=== PATIENT | female | born 1955 | race Caucasian/White ===

== ENCOUNTER 2017-06-16 12:16 | Emergency (ER) | payer SELFPAY ==
[~2017-06-16] VITALS: Ht 154.9 cm; Wt 62.0 kg
[~2017-06-16 12:16] MED LIST: ALBU17I INH; EFFE150C PO; IBUP-238 PO; LEVO88TA2 PO; MIRTA15 PO; NEXI20CA PO; QUET1TAB66 PO; SYNT88TA PO; VIST50CA PO
[2017-06-16 12:17] VITALS: BP 125/68; PULSE 98; RESP 17; TEMP 97.9; O2SAT 96
--- NOTE | 2017-06-16 12:22 | PD ---
Physical Exam Time Seen by Provider: 12:21 Narrative 61-year-old female presents to the emergency Department with complaint of right foot and ankle pain after getting dizzy last night and falling to the floor. Denies anticoagulants. Denies hitting her head or loss of consciousness. Denies neck pain or back pain that is unchanged. Denies chest pain, shortness of breath. He is ambulatory and triaged. Patient seen in triage. Vital signs reviewed. Patient awaiting medical bed. Data Data Last Documented VS Vital Signs Date Time Temp Pulse Resp B/P (MAP) Pulse Ox O2 Delivery O2 Flow Rate FiO2 06/16/17 12:17 97.9 98 17 125/68 (87) 96 Room Air [facility] Supervised Visit with NOHELIA: Laura Coreas Jun 16, 2017 12:22
[2017-06-16] MEDS ORDERED: SODIUM CHLORIDE 0.9% FLUSH 10 ML FLUSH IVF PRN (12:30)
--- NOTE | 2017-06-16 13:14 | RADRPT ---
EXAM DATE/TIME: 06/16/2017 13:00 [facility] COMPARISON: No previous studies available for comparison. INDICATIONS : Pain post fall. MEDICAL HISTORY : None. SURGICAL HISTORY : None. ENCOUNTER: Initial ACUITY: 1 day PAIN SCORE: 8/10 LOCATION: Right Ankle. FINDINGS: Three view exam was performed of the right ankle. The bony structures are in normal alignment. No e vidence of fracture, dislocation, or soft tissue swelling. The ankle mortise is intact. No radiopaq ue foreign bodies are seen. Bony mineralization is normal. CONCLUSION: Unremarkable examination of the right ankle. Devyn Chawla Jr., MD on June 16, 2017 at 13:12 Board Certified Radiologist. This report was verified electronically.
[2017-06-16 13:15] VITALS: BP 156/82; PULSE 81; RESP 18; TEMP 98; O2SAT 98
--- NOTE | 2017-06-16 13:15 | RADRPT ---
EXAM DATE/TIME: 06/16/2017 13:01 [facility] COMPARISON: No previous studies available for comparison. INDICATIONS : Pain post fall. MEDICAL HISTORY : None. SURGICAL HISTORY : None. ENCOUNTER: Initial ACUITY: 1 day PAIN SCORE: 8/10 LOCATION: Right Foot FINDINGS: Three view examination of the right foot demonstrates no soft tissue swelling, dislocation, or fractu re. The tarsal bones appear intact. The interphalangeal and metatarsophalangeal joints are intact. The calcaneus is intact. Bony mineralization is normal. CONCLUSION: No acute disease. Devyn Chawla Jr., MD on June 16, 2017 at 13:13 Board Certified Radiologist. This report was verified electronically.
[2017-06-16 13:20] LABS: AUTOMATED NEUTROPHIL # 4.8 TH/MM3 (1.8-7.7); BASOPHIL % 0.2 % (0.0-2.0); HEMATOCRIT 41.1 % (35.0-46.0); HEMO FLAGS DIFF FINAL; LYMPH % 31.9 % (9.0-44.0); LYMPHOCYTE # 2.5 TH/MM3 (1.0-4.8); MEAN CELL VOLUME 93.2 FL (80.0-100.0); MEAN CORPUSCULAR HEMOGLOBIN 30.9 PG (27.0-34.0); MEAN CORPUSCULAR HGB CONC 33.2 % (32.0-36.0); MONO % 8.1 % (0.0-8.0); NEUT % 59.8 % (16.0-70.0); PLATELET COUNT 300 TH/MM3 (150-450); RED BLOOD COUNT 4.41 MIL/MM3 (4.00-5.30); RED CELL DISTRIBUTION WIDTH 14.2 % (11.6-17.2)
[2017-06-16 13:22] VITALS: BP 156/82; PULSE 81; RESP 18; TEMP 98; O2SAT 98
[2017-06-16] MEDS ORDERED: LEVO75TA3 PO (13:27)
[2017-06-16] MEDS ORDERED: EFFE150C PO (13:27)
[2017-06-16] MEDS ORDERED: ALBU6.7H INH (13:27)
[2017-06-16] MEDS ORDERED: MIRTA15 PO (13:27)
[2017-06-16] MEDS ORDERED: VIST50CA PO (13:27)
[2017-06-16] MEDS ORDERED: RANI1TAB5 PO (13:27)
[2017-06-16] MEDS ORDERED: PRAZ1CAP PO (13:27)
[2017-06-16] MEDS ORDERED: SERO300T PO (13:27)
[2017-06-16] MEDS ORDERED: traMADol HCL 50 MG TAB PO ONE (14:00)
[2017-06-16 14:09] LABS: BICARBONATE 24.1 MEQ/L (21.0-32.0); POTASSIUM 4.1 MEQ/L (3.5-5.1)
--- NOTE | 2017-06-16 14:51 | EKG ---
Date Performed: 06/16/2017 Time Performed: 12:35:56 PTAGE: 61 years EKG: Sinus rhythm T-WAVE ABNORMALITY, CONSIDER ANTEROLATERAL ISCHEMIA ABNORMAL ECG PREVIOUS TRACING : 06/12/2014 09.51 No significant change from previous tracing noted. DOCTOR: Peter Keith Interpretating Date/Time 06/16/2017 14:49:44
--- NOTE | 2017-06-16 15:58 | PD ---
HPI Chief Complaint: Injury Time Seen by Provider: 13:17 Travel History International Travel<30 days: No Contact w/Intl Traveler<30days: No Traveled to known affect area: No History of Present Illness HPI Patient is a 61-year-old female who comes in complaining of right foot pain. She says she felt dizzy last night while she was in the bathroom and she fell and twisted her foot. She denies hitting her head. She denies any headache or neck pain. She just has pain to her right foot. She did not take anything at home for pain. She says that the dizziness went away is when she laid down last night. She has not had any dizziness today. She denies any chest pain or shortness of breath. She says she really just came in. She was concerned she might have injured her foot. PFSH Past Medical History Arthritis: Yes Asthma: Yes Anxiety: Yes Depression: Yes Heart Rhythm Problems: No Cardiac Catheterization: No Cardiovascular Problems: Yes (DENIES) High Cholesterol: No Chest Pain: Yes Congestive Heart Failure: No Diabetes: No Diminished Hearing: No GERD: Yes Headaches: Yes Insomnia: Yes Psychiatric: Yes Respiratory: Yes Migraines: Yes Pneumonia: Yes Thyroid Disease: Yes Tetanus Vaccination: Unknown Influenza Vaccination: No ?: Not Menopausal: Yes : 5 Para: 3 : 2 Past Surgical History Appendectomy: Yes Coronary Artery Bypass Graft: No Endocrine Surgery: No Gynecologic Surgery: Yes Hysterectomy: Yes Tonsillectomy: Yes Other Surgery: Yes Family History Family Hypercholesterolemia: Yes Social History Alcohol Use: No Tobacco Use: No (quit 13 years ago) Substance Use: No Allergies-Medications (Allergen,Severity, Reaction): Coded Allergies: ziprasidone (Unverified Allergy, Severe, Confusion, 06/16/17) zolpidem (Unverified Allergy, Severe, 06/16/17) Reported Meds & Prescriptions Reported Meds & Active Scripts Active Reported Proventil Hfa 6.7 GM Inh (Albuterol Sulfate) 90 Mcg/Act Aer 2 Puff INH Q4-6H PRN Ranitidine 75 (Ranitidine HCl) 75 Mg Tab 75 Mg PO BID Take 30 to 60 minutes before eating food or drinking beverages that cause heartburn. Mirtazapine 15 Mg Tab 15 Mg PO HS Prazosin (Prazosin HCl) 1 Mg Cap 1 Mg PO HS Vistaril (Hydroxyzine Pamoate) 50 Mg Cap 50 Mg PO TID Seroquel (Quetiapine Fumarate) 300 Mg Tab 300 Mg PO HS Effexor XR 24 HR (Venlafaxine HCl) 150 Mg Cap 150 Mg PO BID Levothyroxine (Levothyroxine Sodium) 75 Mcg Tab 75 Mcg PO DAILY Review of Systems Except as stated in HPI: all other systems reviewed are Neg General / Constitutional: No: Fever, Chills Eyes: No: Blurred Vision HENT: Positive: Vertigo, No: Headaches, Lightheadedness Cardiovascular: No: Chest Pain or Discomfort Respiratory: No: Shortness of Breath Gastrointestinal: No: Nausea, Vomiting Musculoskeletal: Positive: Pain, No: Myalgias, Edema Skin: No Rash, No Change in Pigmentation Neurologic: No: Weakness, Syncope Physical Exam Narrative GENERAL: Awake and alert, in no acute distress. SKIN: Focused skin assessment warm/dry. HEAD: Atraumatic. Normocephalic. EYES: Pupils equal and round. No scleral icterus. Extraocular movements intact , no nystagmus. ENT: Mucous membranes pink and moist. NECK: Trachea midline. No JVD. CARDIOVASCULAR: Regular rate and rhythm. No murmur appreciated. RESPIRATORY: No accessory muscle use. Clear to auscultation. Breath sounds equal bilaterally. GASTROINTESTINAL: Abdomen soft, non-tender, nondistended. MUSCULOSKELETAL: No obvious deformities. No clubbing. No cyanosis. No edema. Tender to palpation along the bottom of the foot. Pedal pulses intact. NEUROLOGICAL: Awake and alert. No obvious cranial nerve deficits. Motor grossly within normal limits. Normal speech. Normal cerebellar function testing. PSYCHIATRIC: Appropriate mood and affect; insight and judgment normal. Data Data Last Documented VS Vital Signs Date Time Temp Pulse Resp B/P (MAP) Pulse Ox O2 Delivery O2 Flow Rate FiO2 06/16/17 13:22 98.0 81 18 156/82 (106) 98 Room Air Orders Orders Electrocardiogram (06/16/17 12:23) Basic Metabolic Panel (Bmp) (06/16/17 12:23) Complete Blood Count With Diff (06/16/17 12:23) Ecg Monitoring (06/16/17 12:23) Iv Access Insert/Monitor (06/16/17 12:23) Oximetry (06/16/17 12:23) Sodium Chloride 0.9% Flush (Ns Flush) (06/16/17 12:30) Ankle, Complete (Mhl3ali) (06/16/17 12:23) Foot, Complete (Clz2dnr) (06/16/17 12:23) Tramadol (Ultram) (06/16/17 14:00) Troponin I (06/16/17 14:16) Labs Laboratory Tests Test 06/16/17 12:25 White Blood Count 8.0 TH/MM3 Red Blood Count 4.41 MIL/MM3 Hemoglobin 13.6 GM/DL Hematocrit 41.1 % Mean Corpuscular Volume 93.2 FL Mean Corpuscular Hemoglobin 30.9 PG Mean Corpuscular Hemoglobin Concent 33.2 % Red Cell Distribution Width 14.2 % Platelet Count 300 TH/MM3 Mean Platelet Volume 8.0 FL Neutrophils (%) (Auto) 59.8 % Lymphocytes (%) (Auto) 31.9 % Monocytes (%) (Auto) 8.1 % Eosinophils (%) (Auto) 0.0 % Basophils (%) (Auto) 0.2 % Neutrophils # (Auto) 4.8 TH/MM3 Lymphocytes # (Auto) 2.5 TH/MM3 Monocytes # (Auto) 0.6 TH/MM3 Eosinophils # (Auto) 0.0 TH/MM3 Basophils # (Auto) 0.0 TH/MM3 CBC Comment DIFF FINAL Differential Comment Blood Urea Nitrogen 13 MG/DL Creatinine 1.61 MG/DL Random Glucose 86 MG/DL Calcium Level 9.1 MG/DL Sodium Level 137 MEQ/L Potassium Level 4.1 MEQ/L Chloride Level 106 MEQ/L Carbon Dioxide Level 24.1 MEQ/L Anion Gap 7 MEQ/L Estimat Glomerular Filtration Rate 33 ML/MIN Troponin I LESS THAN 0.02 NG/ML MDM Medical Decision Making Medical Screen Exam Complete: Yes Emergency Medical Condition: Yes Medical Record Reviewed: Yes Interpretation(s) ECG shows normal sinus rhythm at 82, no ST elevation or depression. She does have T-wave inversions in V4 through V6, which is the same compared to her previous ECG. Differential Diagnosis Foot fracture versus sprain versus vertigo Narrative Course Patient is a 61-year-old female comes in complaining of foot pain after a fall last night. She did get dizziness last night, but this has gone away. She has no neurologic findings on her exam. IV established, labs sent. Labs show a creatinine of 1.6, this is slightly increased from 1.2 in the past. Patient informed of this and advised follow-up with her doctor. X-ray of the foot shows no acute abnormalities. Patient given tramadol for pain. Advised follow-up with her doctors. Advised to return to the ED as needed for any worsening symptoms. Diagnosis Primary Impression: Foot sprain Qualified Codes: S93.601A - Unspecified sprain of right foot, initial encounter Patient Instructions: Foot Sprain (ED), General Instructions Additional Instructions: Take Tylenol or ibuprofen as needed for pain. Follow-up with your doctor as your kidney function is slightly decreased today, you should follow-up with your doctor to have this test repeated. Return to the ED as needed for any worsening symptoms. Disposition: 01 DISCHARGE HOME Condition: Stable Melida Oakley MD Jun 16, 2017 15:58
[2017-06-16 16:36] VITALS: BP 161/73
== END 2017-06-16 16:36 | disposition home or self-care (01) ==
LOC: NEPD 12:16
DX: S93.601A Unspecified sprain of right foot, initial encounter (principal); J45.909 Unspecified asthma, uncomplicated; F41.9 Anxiety disorder, unspecified; R42 Dizziness and giddiness; F32.9 Major depressive disorder, single episode, unspecified; K21.9 Gastro-esophageal reflux disease without esophagitis; Z87.891 Personal history of nicotine dependence; Z79.899 Other long term (current) drug therapy; W18.39XA Other fall on same level, initial encounter
CPT/HCPCS: 73610; 73630; 80048; 84484; 85025; 93005; 99285